=== PATIENT | female | born 1960 | race Caucasian/White ===

== ENCOUNTER 2016-08-16 11:53 | Emergency (ER) | payer OTHER ==
[2016-08-16 11:58] VITALS: BP 123/67; PULSE 82; TEMP 98.5; BMI 30.2
--- NOTE | 2016-08-16 12:33 | PDOC ---
History of Present Illness - General Chief Complaint: Sore Throat Stated Complaint: SORE THROAT Time Seen by Provider: 08/16/16 12:02 History Source: Patient Exam Limitations: No Limitations - History of Present Illness Initial Comments: 08/16/16 13:29 Patient is here for another opinion about lesion to the back right side of her tongue. was seen by 2 different providers including a dentist and her primary care provider for discomfort and discoloration to the very posterior aspect of her tongue. is not painful at this time however had been painful approximately one month ago. Her doctor prescribed her Valtrex but she did not take because she was uncertain as to the cause of the lesion and did not feel should he treated without certainty. 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 Patient states has that appointment coming up next week. Patient was concerned and wanted someone else to evaluate the lesion on her tongue. Denies fever, denies any recent trauma or hot foods, any biting injuries. Has no dentition problems. No earache sore throat coughing sneezing and no lesions elsewhere in her mouth. Timing/Duration: unsure, getting worse, changing over time Severity: mild Associated Symptoms: reports: denies symptoms Past History - Travel Traveled outside of the country in the last 30 days: No Close contact w/someone who was outside of country & ill: No - Past Medical History Allergies/Adverse Reactions: Allergies Allergy/AdvReac Type Severity Reaction Status Date / Time iodine [Iodine] Allergy Mild Rash Verified 08/16/16 11:58 Sulfa (Sulfonamide Allergy Mild Rash Verified 08/16/16 11:58 Antibiotics) Home Medications: Ambulatory Orders Amlodipine/Atorvastatin [Amlodipine-Atorvast 10-80 mg] 5 mg PO DAILY 12/10/14 Ipratropium 0.02% Nebulizer [Atrovent 0.02% Nebulizer -] 1 neb NEB QID #20 vial 08/11/15 Loratadine [Claritin -] 10 mg PO DAILY #30 tablet 08/12/15 Asthma: Yes GI Disorders: Yes (GERD) HTN: Yes - Surgical History Abdominal Surgery: Yes (ectopic sx) Cholecystectomy: Yes - Immunization History Td Vaccination: Yes TDAP Vaccination: Yes Immunization Up to Date: No - Psycho/Social/Smoking Cessation Hx Anxiety: No Suicidal Ideation: No Smoking Status: No Smoking History: Never smoked Have you smoked in the past 12 months: No Number of Cigarettes Smoked Daily: 0 Information on smoking cessation initiated: No Hx Alcohol Use: No Drug/Substance Use Hx: No Substance Use Type: None Review of Systems - Review of Systems Able to Perform ROS?: Yes Is the patient limited Icelandic proficient: Yes Constitutional: Yes: See HPI. No: Symptoms Reported, Fever, Loss of Appetite HEENTM: Yes: Symptoms Reported, See HPI, Other (tongue lesion,) Musculoskeletal: Yes: See HPI. No: Symptoms Reported Neurological: No: Symptoms reported All Other Systems: Reviewed and Negative *Physical Exam - Vital Signs Last Vital Signs Temp Pulse Resp BP Pulse Ox 98.5 F 82 18 123/67 98 08/16/16 11:56 08/16/16 11:56 08/16/16 11:56 08/16/16 11:56 08/16/16 11:56 - Physical Exam General Appearance: Yes: Nourished, Appropriately Dressed. No: Apparent Distress HEENT: positive: DIANA, TMs Normal, Pharynx Normal, Other (tongue with a erythematous vascular appearing lesion to the posterior aspect of the right side of her tongue. No ulcerations noted, no drainage, no other plaques or other lesions noted elsewhere in her mouth. Is nontender to touch.) Neck: positive: Supple. 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 Patient reports that Valtrex 1 g twice a day was prescribed which she did not get take. Encourage patient to take one pill 3 times daily which is the appropriate doses and follow -up with emergency response technician as previously scheduled for reevaluation and hopeful resolution of lesion. *DC/Admit/Observation/Transfer Diagnosis at time of Disposition: Tongue disease - Discharge Dispostion Disposition: HOME Condition at time of disposition: Stable Admit: No - Referrals Referrals: Chuck Mercer [Primary Care Provider] - - Patient Instructions Printed Discharge Instructions: Herpes (Alternative Therapy) Additional Instructions: Rest, drink lots of fluids: Teas, water, soups Saltwater gargles/ keep mouth clean and rinse after each meal May use wet teabag for pain relief to area Avoid hard chewing foods, stick to ice cream, Jell-O, yogurt etc. Tylenol or Motrin for fever and pain Complete all medication as prescribed Seek dental / oral surgeon appointment as soon as possible for evaluation of dental / tongue Followup with private physician in one to 2 days as needed Return to emergency department for worsened symptoms, fevers, swelling to face or worsened pain - Post Discharge Activity Work/School Note: Back to Work
== END 2016-08-16 12:49 | disposition home or self-care (01) ==
LOC: JERFT 11:53
DX: B00.9 Herpesviral infection, unspecified (principal); I10 Essential (primary) hypertension; J45.909 Unspecified asthma, uncomplicated; K21.9 Gastro-esophageal reflux disease without esophagitis
CPT/HCPCS: 99281-25

== ENCOUNTER 2017-02-17 20:21 | Emergency (ER) | payer OTHER ==
[2017-02-17 20:41] VITALS: BMI 34.0
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
[2017-02-18 00:02] VITALS: BP 126/64; PULSE 87; TEMP 98
== END 2017-02-18 00:02 | disposition home or self-care (01) ==
LOC: JER 20:21
DX: S02.2XXA Fracture of nasal bones, initial encounter for closed fracture (principal); I10 Essential (primary) hypertension; J45.909 Unspecified asthma, uncomplicated; K21.9 Gastro-esophageal reflux disease without esophagitis; Y04.2XXA Assault by strike against or bumped into by another person, initial encounter; Y93.89 Activity, other specified; Y92.038 Other place in apartment as the place of occurrence of the external cause; Y07.01 Husband, perpetrator of maltreatment and neglect
CPT/HCPCS: 70450-TC; 70486-TC; 99282-25

== ENCOUNTER 2018-01-10 14:06 | Emergency (ER) | payer OTHER ==
[2018-01-10 14:29] VITALS: BP 145/74; PULSE 93; TEMP 98; BMI 34.7
[2018-01-10] MEDS ORDERED: NAPROXEN 500 MG TABLET (FP) PO ONE (14:49)
[2018-01-10] MEDS ORDERED: NAPROXEN 500 MG TABLET (FP) ONE (14:50)
--- NOTE | 2018-01-10 15:02 | PDOC ---
History of Present Illness - General Chief Complaint: Pain, Acute Stated Complaint: LT ARM Time Seen by Provider: 01/10/18 14:41 History Source: Patient Exam Limitations: No Limitations - History of Present Illness Initial Comments: 01/10/18 14:50 c/o left upper arm pain worse at night for 2 weeks. Pt states 2 months ago had same pain relieved with muscle relaxants. Pt denies injury no neck or back pain non radiating no chest pain or SOB no rash or fever. Severity: reports: moderate Upper Extremity Pain Location: left: arm (humerus) Past History - Past Medical History Allergies/Adverse Reactions: Allergies Allergy/AdvReac Type Severity Reaction Status Date / Time iodine [Iodine] Allergy Mild Rash Verified 01/10/18 14:29 Sulfa (Sulfonamide Allergy Mild Rash Verified 01/10/18 14:29 Antibiotics) Home Medications: Ambulatory Orders Amlodipine/Atorvastatin [Amlodipine-Atorvast 10-80 mg] 10 mg PO DAILY 12/10/14 Naproxen [Naprosyn -] 500 mg PO BID #14 tablet 01/10/18 Asthma: Yes COPD: No GI Disorders: Yes (GERD) HTN: Yes - Surgical History Abdominal Surgery: Yes (ectopic sx) Cholecystectomy: Yes - Immunization History Td Vaccination: Yes TDAP Vaccination: Yes Immunization Up to Date: No - Suicide/Smoking/Psychosocial Hx Smoking Status: No Smoking History: Unknown if ever smoked Have you smoked in the past 12 months: No Number of Cigarettes Smoked Daily: 0 Hx Alcohol Use: No Drug/Substance Use Hx: No Substance Use Type: None *Physical Exam - Vital Signs Last Vital Signs Temp Pulse Resp BP Pulse Ox 98 F 93 H 18 145/74 97 01/10/18 14:24 01/10/18 14:24 01/10/18 14:24 01/10/18 14:24 01/10/18 14:24 - Physical Exam General Appearance: Yes: Nourished, Appropriately Dressed HEENT: positive: EOMI, DIANA Extremity: positive: Normal Capillary Refill, Normal Inspection, Tender (soft tissue left upper lateral arm , no deformity or swelling , nv intact FROM limited shoulder abduction due to pain ) Integumentary: positive: Normal Color, Dry, Warm Neurologic: positive: Fully Oriented, Alert, Normal Mood/Affect, Normal Response , Motor Strength 5/5 ED Treatment Course - RADIOLOGY Radiology Studies Ordered: Category Date Time Status HUMERUS-LEFT [RAD] Stat Radiology 01/10/18 14:48 Ordered Medical Decision Making - Medical Decision Making 01/10/18 14:51 cc: left upper arm pain worse with movement worse when lying on the arm pt has no chest pain or shortness of breath *DC/Admit/Observation/Transfer Diagnosis at time of Disposition: Arm pain Qualifiers: Laterality: left Qualified Code(s): M79.602 - Pain in left arm - Discharge Dispostion Disposition: HOME Condition at time of disposition: Good - Prescriptions Prescriptions: Naproxen [Naprosyn -] 500 mg PO BID #14 tablet - Referrals Referrals: Rocky Perdue MD [Staff Physician] - - Patient Instructions Additional Instructions: follow with the orthopedist listed below use the sling while awake remove to sleep and bathe apply a topicla rubbing cream such as BioFreeze or Icy Hot to the area of pain take naprosyn as directed every 12hrs for pain - Post Discharge Activity
== END 2018-01-10 15:16 | disposition home or self-care (01) ==
LOC: JERFT 14:06
DX: M79.602 Pain in left arm (principal); I10 Essential (primary) hypertension; J45.909 Unspecified asthma, uncomplicated; K21.9 Gastro-esophageal reflux disease without esophagitis
CPT/HCPCS: 73060-TC-LT-FY; 99281-25

== ENCOUNTER 2018-07-11 10:27 | Emergency (ER) | payer OTHER ==
[2018-07-11 10:35] VITALS: BP 148/70; PULSE 83; TEMP 97.6; BMI 33.6
[2018-07-11] MEDS ORDERED: ALBUTEROL SO4 2.5/IPRATROPIUM 0.5 INH SOL 3 ML VIAL.NEB. NEB ONE ×3 (10:47→11:45)
[2018-07-11] MEDS ORDERED: predniSONE 20 MG TABLET (UD) PO ONE (10:48)
--- NOTE | 2018-07-11 10:54 | PDOC ---
History of Present Illness - General Chief Complaint: Respiratory Stated Complaint: ASTHMA Time Seen by Provider: 07/11/18 10:47 History Source: Patient Exam Limitations: No Limitations (57y/o F with h/o asthma, p/w cough/chest tightness X 5 days) - History of Present Illness Associated Symptoms: reports: cough. denies: chest pain/soreness, dizziness, fever/chills, headache, lightheadedness, nasal congestion, nasal drainage, shortness of breath Past History - Travel Traveled outside of the country in the last 30 days: No Close contact w/someone who was outside of country & ill: No - Past Medical History Allergies/Adverse Reactions: Allergies Allergy/AdvReac Type Severity Reaction Status Date / Time iodine [Iodine] Allergy Mild Rash Verified 07/11/18 10:35 Sulfa (Sulfonamide Allergy Mild Rash Verified 07/11/18 10:35 Antibiotics) Home Medications: Ambulatory Orders Amlodipine/Atorvastatin [Amlodipine-Atorvast 10-80 mg] 5 mg PO DAILY 12/10/14 Cyclobenzaprine HCl [Flexeril -] 10 mg PO HS #10 tablet 03/12/18 Ibuprofen 800 mg PO TID #30 tablet 03/12/18 Azithromycin 250 mg PO ACDIN #6 tablet 07/11/18 Benzonatate [Tessalon Pearls -] 100 mg PO TID #21 capsule 07/11/18 Prednisone [Deltasone] 40 mg PO DAILY #8 tablet 07/11/18 Asthma: Yes COPD: No DVT: No GI Disorders: Yes (GERD) HTN: Yes - Surgical History Abdominal Surgery: Yes (ectopic sx) Cholecystectomy: Yes - Immunization History Td Vaccination: Yes TDAP Vaccination: Yes Immunization Up to Date: No - Suicide/Smoking/Psychosocial Hx Smoking Status: No Smoking History: Never smoked Have you smoked in the past 12 months: No Number of Cigarettes Smoked Daily: 0 Hx Alcohol Use: No Drug/Substance Use Hx: No Substance Use Type: None Respiratory Specific PMHX - Complaint Specific PMHX Angina: No Review of Systems - Review of Systems Constitutional: No: Chills, Fever HEENTM: No: Throat Pain, Throat Swelling Respiratory: Yes: Cough, Wheezing, Productive cough. No: Shortness of Breath, SOB with Exertion, SOB at Rest, Stridor Cardiac (ROS): Yes: Chest Tightness. No: Chest Pain, Irregular Heart Rate, Lightheadedness, Palpitations ABD/GI: No: Abdominal Distended, Abd. Pain w/ defecation, Blood Streaked Bowels , Constipated *Physical Exam - Vital Signs Last Vital Signs Temp Pulse Resp BP Pulse Ox 97.6 F 83 18 148/70 97 07/11/18 10:33 07/11/18 10:33 07/11/18 10:33 07/11/18 10:33 07/11/18 10:33 - Physical Exam General Appearance: Yes: Nourished HEENT: positive: Nasal Congestion. 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 intact, Fully Oriented, Alert Moderate Sedation - Procedure Monitoring Vital Signs: Procedure Monitoring Vital Signs Temperature 97.6 F 07/11/18 10:33 Pulse Rate 83 07/11/18 10:33 Respiratory Rate 18 07/11/18 10:33 Blood Pressure 148/70 07/11/18 10:33 O2 Sat by Pulse Oximetry (%) 97 07/11/18 10:33 ED Treatment Course - RADIOLOGY Radiology Studies Ordered: Category Date Time Status CHEST PA & LAT [RAD] Stat Radiology 07/11/18 10:48 Ordered Medical Decision Making - Medical Decision Making 07/11/18 10:51 pt is a 57y/o F with h/o asthma--denies prior ETT or hospitalization p/w with productive cough and chest tightness for 5 days.his is similarevious asthma exacerbation. Patient is using her inhaler and nebulizer, she denies dizziness, CP, sorethroat, palpitation exam consistent with course rhonchi in lung base, she is not in any respiratory distress, vss plan is prednisone, nebs and cxr reassess after nebs 07/11/18 12:16 CXR no PNA noted, congestion pt has had 2nebs, feels much better, moving air short course of prednisone, antitussive and zpak sent to pharmacy. *DC/Admit/Observation/Transfer Diagnosis at time of Disposition: Asthma exacerbation Qualifiers: Asthma severity: mild Asthma persistence: unspecified Qualified Code(s): J45.901 - Unspecified asthma with (acute) exacerbation - Discharge Dispostion Disposition: HOME Condition at time of disposition: Stable Decision to Admit order: No - Prescriptions Prescriptions: Azithromycin 250 mg PO ACDIN #6 tablet Benzonatate [Tessalon Pearls -] 100 mg PO TID #21 capsule Prednisone [Deltasone] 40 mg PO DAILY #8 tablet - Referrals Referrals: Chuck Mercer [Primary Care Provider] - 2 Days - Patient Instructions Printed Discharge Instructions: DI for Asthma -- Adult Additional Instructions: I discussed the physical exam findings, ancillary test results and final diagnoses with the patient. I answered all of the patient's questions. The patient was satisfied with the care received and felt comfortable with the discharge plan and treatment plan. The patient will call their primary care physician within 24 hours to arrange follow-up and will return to the Emergency Department with any new, persistant or worsening symptoms. - Post Discharge Activity
[2018-07-11] MEDS ORDERED: predniSONE 20 MG TABLET (UD) ONE ×2 (10:55→10:58)
== END 2018-07-11 12:35 | disposition home or self-care (01) ==
LOC: JERFT 10:27
PROC: 3E0F7GC Introduction of Other Therapeutic Substance into Respiratory Tract, Via Natural or Artificial Opening (ICD-10-PCS; principal; 2018-07-11)
DX: J45.901 Unspecified asthma with (acute) exacerbation (principal); I10 Essential (primary) hypertension
CPT/HCPCS: 71046-TC-FY; 94640; 99281-25

== ENCOUNTER 2019-05-06 07:24 | Emergency (ER) | payer OTHER ==
[2019-05-06 07:33] VITALS: BP 133/58; PULSE 82; TEMP 98.2; BMI 35.6
[2019-05-06] MEDS ORDERED: ALBUTEROL SO4 2.5/IPRATROPIUM 0.5 INH SOL 3 ML VIAL.NEB. NEB ONE ×2 (07:54→08:10)
[2019-05-06] MEDS ORDERED: methylPREDNISolone NA SUCC 125 MG/2 ML VIAL IM ONE (08:00)
[2019-05-06] MEDS ORDERED: methylPREDNISolone NA SUCC 125 MG/2 ML VIAL ONE (08:10)
--- NOTE | 2019-05-06 08:27 | PDOC ---
History of Present Illness - General Chief Complaint: Wheezing Stated Complaint: PRODUCTIVE COUGH/SOB Time Seen by Provider: 05/06/19 07:53 History Source: Patient Exam Limitations: Clinical Condition - History of Present Illness Initial Comments: 05/06/19 08:24 Patient with past medical history of asthma present with complaint of 4 days history of persistent dry cough, nasal congestion, body aches, tactile fever, chest tightness and intermittent wheezing. Patient reported using home nebulizer treatment yesterday but still for chest tightness. Patient reported has been taking Motrin for fevers but has not taken anything today for fever. Denies nausea, vomiting, diarrhea, abdominal pain. Patient report loss of voice this morning. Denies any sick contact or recent travel. Denies any other symptoms Is this a multiple visit Asthma Patient?: No Timing/Duration: other (4 days) Past History - Past Medical History Allergies/Adverse Reactions: Allergies Allergy/AdvReac Type Severity Reaction Status Date / Time iodine [Iodine] Allergy Mild Rash Verified 05/06/19 08:21 Sulfa (Sulfonamide Allergy Mild Rash Verified 05/06/19 08:21 Antibiotics) Home Medications: Ambulatory Orders Amlodipine/Atorvastatin [Amlodipine-Atorvast 10-80 mg] 5 mg PO DAILY 12/10/14 Benzonatate [Tessalon Pearls -] 100 mg PO TID PRN #21 capsule 05/06/19 Ipratropium [place] 2 spray NS BID PRN 5 Days #1 spray 05/06/19 Methylprednisolone [Medrol Dose Artemio] 4 mg PO ASDIR #21 tablet 05/06/19 Asthma: Yes COPD: No DVT: No GI Disorders: Yes (GERD) HTN: Yes - Surgical History Abdominal Surgery: Yes (ectopic sx) Cholecystectomy: Yes - Immunization History Td Vaccination: Yes TDAP Vaccination: Yes Immunization Up to Date: No - Psycho Social/Smoking Cessation Hx Smoking Status: No Smoking History: Never smoked Have you smoked in the past 12 months: No Number of Cigarettes Smoked Daily: 0 Information on smoking cessation initiated: No Hx Alcohol Use: No Drug/Substance Use Hx: No Substance Use Type: None Review of Systems - Review of Systems Able to Perform ROS?: Yes Is the patient limited Trin[place] proficient: No Constitutional: Yes: Fever, Malaise HEENTM: Yes: Symptoms Reported, See HPI, Nose Congestion, Throat Pain. No: Eye Pain, Blurred Vision, Tearing, Recent change in vision, Double Vision, Cataracts , Ear Pain, Ocular Prothesis, Ear Discharge, Nose Pain, Tinnitus, Nose Bleeding , Hearing Loss, Throat Swelling, Mouth Pain, Dental Problems, Difficulty Swallowing, Mouth Swelling, Other Respiratory: Yes: Symptoms reported, See HPI, Cough, Wheezing. No: Orthopnea, Shortness of Breath, SOB with Exertion, SOB at Rest, Stridor, Productive cough, Hemoptysis, Other Cardiac (ROS): No: Symptoms Reported, See HPI, Chest Pain, Edema, Irregular Heart Rate, Lightheadedness, Palpitations, Syncope, Chest Tightness, Other ABD/GI: No: Nausea, Vomiting Musculoskeletal: No: Symptoms Reported Neurological: No: Symptoms reported All Other Systems: Reviewed and Negative *Physical Exam - Vital Signs Last Vital Signs Temp Pulse Resp BP Pulse Ox 98.2 F 82 16 133/58 L 100 05/06/19 07:29 05/06/19 07:29 05/06/19 07:29 05/06/19 07:29 05/06/19 07:29 - Physical Exam Comments: 05/06/19 08:30 GENERAL: Well developed, well nourished. Awake and alert. No acute distress. HEENT: Normocephalic, atraumatic. PERRLA, EOMI. No conjunctival pallor. Sclera are non-icteric. Moist mucous membranes. Oropharynx is clear. NECK: Supple. Full ROM. CARDIOVASCULAR: Regular rate and rhythm. No murmurs, rubs, or gallops. Distal pulses are 2+ and symmetric. PULMONARY: No evidence of respiratory distress. Mild inspiratory wheeze. No rales or rhonchi. ABDOMINAL: Soft. Non-tender. Non-distended. No rebound or guarding. No organomegaly. Normoactive bowel sounds. MUSCULOSKELETAL Normal range of motion at all joints. SKIN: Warm and dry. Normal capillary refill. No rashes. No cyanosis NEUROLOGICAL: Alert, awake, appropriate. Gait is normal without ataxia. PSYCHIATRIC: Cooperative. Good eye contact. Appropriate mood General Appearance: Yes: Nourished, Appropriately Dressed. No: Apparent Distress ED Treatment Course - RADIOLOGY Radiology Studies Ordered: Category Date Time Status CHEST PA & LAT [RAD] Stat Radiology 05/06/19 07:58 Ordered Medical Decision Making - Medical Decision Making 05/06/19 08:27 Patient with past medical history of asthma present with complaint of 4 days history of persistent dry cough, nasal congestion, body aches, tactile fever, chest tightness and intermittent wheezing. Patient reported using home nebulizer treatment yesterday but still for chest tightness. Patient reported has been taking Motrin for fevers but has not taken anything today for fever. Denies nausea, vomiting, diarrhea, abdominal pain. Patient report loss of voice this morning. Denies any sick contact or recent travel. Denies any other symptoms Exam significant for mild tightness in the chest with mild expiratory wheeze. Decreased voice. afebrile now. Symptoms likely viral URI with bronchospasm versus less likely pneumonia versus influenza. Rapid strep and rapid flu tests ordered. Chest x-ray ordered to rule out pneumonia. DuoNeb with albuterol and Atrovent ordered for wheezing and Solu- Medrol 125 mg IM ordered for bronchospasm. Reassess after treatment 05/06/19 09:09 Rapid strep negative. Rapid flu negative. Checks x-ray shows no acute infiltrate or pathology. Patient symptoms likely viral URI and stable for outpatient management on Tessalon [place] when necessary for cough, Medrol Artemio for bronchospasm and Atrovent nasal spray. For nasal congestion with advised to increase fluid intake and follow with PCP. Patient stable for discharge Discharge - Discharge Information Problems reviewed: Yes Clinical Impression/Diagnosis: Viral syndrome, Laryngitis Asthma exacerbation Qualifiers: Asthma severity: mild Asthma persistence: intermittent Qualified Code(s): J45.21 - Mild intermittent asthma with (acute) exacerbation Condition: Stable Disposition: HOME - Admission No - Additional Discharge Information Prescriptions: Benzonatate [Tessalon Pearls -] 100 mg PO TID PRN #21 capsule PRN Reason: Cough Ipratropium [place] 2 spray NS BID PRN 5 Days #1 spray PRN Reason: nasal congestion Methylprednisolone [Medrol Dose Artemio] 4 mg PO ASDIR #21 tablet - Follow up/Referral Referrals: Chuck Mercer [Primary Care Provider] - - Patient Discharge Instructions Patient Printed Discharge Instructions: DI for Viral Upper Respiratory Infection -- Adult, DI for Laryngitis Additional Instructions: Flu test is negative. Strep test is negative as well. Chest x-ray shows no pneumonia. The symptoms likely from viral infection. Take medications as prescribed. Increase fluid intake. Continue with Motrin as needed for fever. Follow-up PCP as needed. - Post Discharge Activity
== END 2019-05-06 09:20 | disposition home or self-care (01) ==
LOC: JER 07:24
PROC: 3E0F7GC Introduction of Other Therapeutic Substance into Respiratory Tract, Via Natural or Artificial Opening (ICD-10-PCS; principal; 2019-05-06)
PROC: 3E0233Z Introduction of Anti-inflammatory into Muscle, Percutaneous Approach (ICD-10-PCS; 2019-05-06)
DX: J45.20 Mild intermittent asthma, uncomplicated (principal); J04.0 Acute laryngitis; B97.89 Other viral agents as the cause of diseases classified elsewhere; I10 Essential (primary) hypertension; K21.9 Gastro-esophageal reflux disease without esophagitis; Z88.2 Allergy status to sulfonamides; Z88.8 Allergy status to other drugs, medicaments and biological substances
CPT/HCPCS: 71046-TC-FY; 87070; 87804; 87880; 94640; 96372; 99282-25

== ENCOUNTER 2021-10-10 08:38 | Emergency (ER) | payer OTHER ==
[2021-10-10 08:55] VITALS: BP 154/73; PULSE 88; TEMP 98; BMI 37.3
[2021-10-10] MEDS ORDERED: ALBUTEROL SO4 2.5/IPRATROPIUM 0.5 INH SOL 3 ML VIAL.NEB. NEB ONE (09:23)
[2021-10-10] MEDS ORDERED: predniSONE 20 MG TABLET (UD) PO ONE (09:24)
== END 2021-10-10 11:35 | disposition home or self-care (01) ==
LOC: JER 08:38
PROC: 3E0F7GC Introduction of Other Therapeutic Substance into Respiratory Tract, Via Natural or Artificial Opening (ICD-10-PCS; principal; 2021-10-10)
DX: J45.901 Unspecified asthma with (acute) exacerbation (principal)
CPT/HCPCS: 71046-TC-FY; 99283-25

== ENCOUNTER 2024-01-16 07:47 | Emergency (ER) | payer OTHER ==
[2024-01-16 08:01] VITALS: TEMP 98; BMI 34.2
[2024-01-16] MEDS: SODIUM CHLORIDE 0.9% 500 ML INFUS.BAG IV ONE (08:51)
[2024-01-16 09:04] LABS: BASO % 0.8 % (0-2.0); HEMATOCRIT 38.7 % (32.4-45.2); HEMOGLOBIN 13.2 GM/dL (10.7-15.3); LYMPH % 16.5 % (8-40); MCH 30.3 pg (25.7-33.7); MCHC 34.1 g/dl (32.0-36.0); MEAN CELL VOLUME 88.9 fl (80-96); MEAN PLT VOLUME 7.7 fl (7.5-11.1); MONO % 4.4 % (3.8-10.2); NEUT % 76.3 % (42.8-82.8); PLATELET COUNT 297 10^3/uL (134-434); RBC 4.35 M/mm3 (3.60-5.2); RDW 13.6 % (11.6-15.6)
[2024-01-16 09:07] LABS: POTASSIUM 3.4 mmol/L (3.5-5.1)
[2024-01-16 09:09] LABS: CALCIUM 9.4 mg/dL (8.5-10.1)
[2024-01-16 09:10] LABS: BLOOD UREA NITROGEN 13.2 mg/dL (7-18); MAGNESIUM 2.5 mg/dL (1.8-2.4)
[2024-01-16 09:13] LABS: CREATININE 0.8 mg/dL (0.55-1.3)
[2024-01-16 09:14] LABS: BILIRUBIN,TOTAL 0.8 mg/dL (0.2-1); TOT PROT 7.5 g/dl (6.4-8.2)
[2024-01-16 09:29] LABS: EPI CELLS 15 /uL (0-25.1); HYALINE CASTS 1 /uL (0-3.1); URINE APPEARANCE CLEAR; URINE BACTERIA 0 /uL (0-1359); URINE BILIRUBIN NEGATIVE (NEGATIVE); URINE COLOR YELLOW; URINE GLUCOSE (UA) NEGATIVE (NEGATIVE); URINE KETONE NEGATIVE (NEGATIVE); URINE LEUK ESTERASE NEGATIVE (NEGATIVE); URINE NITRITE NEGATIVE (NEGATIVE); URINE PROTEIN 1+ (NEGATIVE); URINE RBC 19 /uL (0-23.9); URINE UROBILINOGEN 0.2 mg/dL (0.2-1.0); URINE WBC 13 /uL (0-25.8)
[2024-01-16 10:54] VITALS: BP 133/60; PULSE 65; RESP 20
== END 2024-01-16 12:27 | disposition home or self-care (01) ==
LOC: JER 07:47
DX: R53.83 Other fatigue (principal); R53.1 Weakness; R35.0 Frequency of micturition; R30.0 Dysuria; Z20.822 Contact with and (suspected) exposure to COVID-19
CPT/HCPCS: 0241U-QW; 36415; 71046-TC-FY; 80053; 81003; 82962; 83735; 84484; 85025; 87086; 93005; 93010; 99285-25

== ENCOUNTER 2024-04-23 06:40 | Emergency (ER) | payer OTHER ==
[2024-04-23 06:54] VITALS: BMI 35.3
[2024-04-23] MEDS ORDERED: ALBUTEROL SO4 2.5/IPRATROPIUM 0.5 INH SOL 3 ML VIAL.NEB. NEB ONE (07:24)
[2024-04-23] MEDS: ALBUTEROL SO4 2.5/IPRATROPIUM 0.5 INH SOL 3 ML VIAL.NEB. NEB ONE ×3 (07:25→07:50)
[2024-04-23] MEDS: SODIUM CHLORIDE 0.9% 500 ML INFUS.BAG IV ONE (07:30)
[2024-04-23] MEDS: IBUPROFEN 600 MG TABLET (FP) PO ONE (07:30)
[2024-04-23] MEDS: methylPREDNISolone NA SUCC 125 MG/2 ML VIAL IVPB ONE (07:35)
[2024-04-23] MEDS ORDERED: IBUPROFEN 600 MG TABLET (FP) PO ONE (07:41)
[2024-04-23] MEDS ORDERED: methylPREDNISolone NA SUCC 125 MG/2 ML VIAL ONE (07:41)
[2024-04-23] MEDS ORDERED: ACETAMINOPHEN 500 MG TABLET (FP) ONE (07:41)
[2024-04-23] MEDS: ACETAMINOPHEN 500 MG TABLET (FP) PO ONE (08:14)
[2024-04-23 08:20] LABS: POTASSIUM 4.3 mmol/L (3.5-5.1)
[2024-04-23 08:23] LABS: BLOOD UREA NITROGEN 16.4 mg/dL (7-18); CALCIUM 9.4 mg/dL (8.5-10.1)
[2024-04-23 08:26] LABS: CREATININE 0.8 mg/dL (0.55-1.3)
[2024-04-23 08:29] LABS: BILIRUBIN,TOTAL 0.8 mg/dL (0.2-1); TOT PROT 7.4 g/dl (6.4-8.2)
[2024-04-23 09:59] VITALS: BP 133/58; PULSE 88; RESP 18; TEMP 98.2
== END 2024-04-23 11:28 | disposition home or self-care (01) ==
LOC: JERFT 06:40 → JER 06:40 → JERFT 11:27
PROC: 3E033GC Introduction of Other Therapeutic Substance into Peripheral Vein, Percutaneous Approach (ICD-10-PCS; principal; 2024-04-23)
PROC: 3E0F7GC Introduction of Other Therapeutic Substance into Respiratory Tract, Via Natural or Artificial Opening (ICD-10-PCS; 2024-04-23)
PROC: 3E0F7GC Introduction of Other Therapeutic Substance into Respiratory Tract, Via Natural or Artificial Opening (ICD-10-PCS; 2024-04-23)
PROC: 3E0F7GC Introduction of Other Therapeutic Substance into Respiratory Tract, Via Natural or Artificial Opening (ICD-10-PCS; 2024-04-23)
DX: R51.9 Headache, unspecified (principal); R05.9 Cough, unspecified; J45.909 Unspecified asthma, uncomplicated; M79.10 Myalgia, unspecified site; Z20.822 Contact with and (suspected) exposure to COVID-19
CPT/HCPCS: 0241U-QW; 36415; 71046-TC-FY; 80053; 99284-25

== ENCOUNTER 2024-12-20 08:31 | Emergency (ER) | payer OTHER ==
[2024-12-20 08:51] VITALS: RESP 18; BMI 34.7
[2024-12-20] MEDS ORDERED: ACETAMINOPHEN INJECTION 100 ML ONE (08:57)
[2024-12-20] MEDS ORDERED: FAMOTIDINE 20 MG/50 ML IVPB 20 MG/50 ML MG IVPB ONE (08:57)
[2024-12-20] MEDS ORDERED: MAG HYDROX/AL HYDROX/SIMETH 30 ML UNIT-DOSE CUP ONE (08:57)
[2024-12-20] MEDS: MAG HYDROX/AL HYDROX/SIMETH 30 ML UNIT-DOSE CUP PO ONE (09:22)
[2024-12-20] MEDS: FAMOTIDINE 20 MG/50 ML IVPB 20 MG/50 ML MG IVPB ONE (09:23)
[2024-12-20] MEDS: ACETAMINOPHEN 1000 MG/100 ML BAG IVPB ONE (09:23)
[2024-12-20 09:30] LABS: ABSOLUTE IMMATURE GRANULOCYTES 0.06 x10^3/uL (0.0-0.031); BASOPHILS # 0.05 x10^3/uL (0.01-0.08); EOSINOPHIL % 2.1 % (0.7-5.8); EOSINOPHILS # 0.14 x10^3/uL (0.04-0.36); HEMATOCRIT 39.6 % (34.1-44.9); HEMOGLOBIN 13.1 g/dL (11.2-15.7); MCHC 33.1 g/dl (32.2-35.5); MEAN CELL VOLUME 90.2 fl (79.4-94.8); MEAN PLT VOLUME 9.6 fl (9.4-12.3); MONOCYTE # 0.27 x10^3/uL (0.24-0.86); PLATELET COUNT 285 x10^3/uL (182-369)
[2024-12-20 09:31] LABS: PH,URINE 5.5 (5.0-8.0); URINE APPEARANCE CLEAR; URINE BILIRUBIN NEGATIVE (NEGATIVE); URINE COLOR YELLOW; URINE GLUCOSE (UA) NEGATIVE (NEGATIVE); URINE KETONE TRACE (NEGATIVE); URINE LEUK ESTERASE NEGATIVE (NEGATIVE); URINE NITRITE NEGATIVE (NEGATIVE); URINE PROTEIN TRACE (NEGATIVE); URINE UROBILINOGEN 0.2 mg/dL (0.2-1.0)
[2024-12-20 10:08] LABS: POTASSIUM 3.4 mmol/L (3.5-5.1)
[2024-12-20 10:11] LABS: ALBUMIN 4.3 g/dl (3.4-5.0); BLOOD UREA NITROGEN 16.4 mg/dL (7-18); CALCIUM 9.5 mg/dL (8.5-10.1); MAGNESIUM 2.4 mg/dL (1.8-2.4)
[2024-12-20 10:14] LABS: CREATININE 0.8 mg/dL (0.55-1.3)
[2024-12-20 10:15] LABS: BILIRUBIN,TOTAL 0.7 mg/dL (0.2-1); TOT PROT 7.5 g/dl (6.4-8.2)
[2024-12-20 10:38] VITALS: BP 135/57; PULSE 75; TEMP 98
== END 2024-12-20 10:30 | disposition home or self-care (01) ==
LOC: JER 08:31
PROC: 3E033GC Introduction of Other Therapeutic Substance into Peripheral Vein, Percutaneous Approach (ICD-10-PCS; principal; 2024-12-20)
PROC: 3E033NZ Introduction of Analgesics, Hypnotics, Sedatives into Peripheral Vein, Percutaneous Approach (ICD-10-PCS; 2024-12-20)
DX: R10.13 Epigastric pain (principal); R11.2 Nausea with vomiting, unspecified; R19.7 Diarrhea, unspecified; R94.31 Abnormal electrocardiogram [ECG] [EKG]
CPT/HCPCS: 36415; 80053; 81003; 83690; 83735; 84484; 85025; 87086; 93005; 93010; 99285-25; J0131

== ENCOUNTER 2024-12-26 13:55 | Emergency (ER) | payer OTHER ==
[2024-12-26 14:11] VITALS: BP 138/62; PULSE 79; RESP 16; TEMP 98.2; BMI 34.2
== END 2024-12-26 17:10 | disposition home or self-care (01) ==
LOC: JER 13:55
DX: R19.7 Diarrhea, unspecified (principal); R10.13 Epigastric pain
CPT/HCPCS: 99283-25